=== PATIENT | male | born 1970 | race Caucasian/White ===

== ENCOUNTER 2019-02-08 20:55 | Emergency (ER) | payer BC, SELFPAY ==
[2019-02-08 21:06] VITALS: BP 164/108; PULSE 82; RESP 18; TEMP 36.2; O2SAT 99; BMI 27.5
[2019-02-08 21:30] VITALS: BP 155/96; PULSE 74; RESP 18; O2SAT 97
--- NOTE | 2019-02-08 21:54 | ED_ITS ---
HPI - Dizziness General Chief Complaint: Dizziness Stated Complaint: LIGHT HEADED AND DIZZY Time Seen by Provider: 02/08/19 21:54 Source: patient Mode of arrival: Ambulatory Limitations: no limitations History of Present Illness HPI Narrative: This is a 48-year-old gentleman comes emergency feeling lightheaded and dizzy. Patient states when he moves his head side to makes him feel little bit more dizzy. He states some soreness sudden onset was sitting at a desk. He denies spinning or vertigo like symptoms. He did the describes it more as feeling lightheaded but with no presyncope or syncope. States better but still present. Denies any vision changes. Chronically has headaches the left orthodox and behind the eye that sometimes cause some numbness and tingling of his face. He takes Lexapro for this intermittently. He has had testing including CT and MRI of his head and neck and they did not find any changes. Patient states he has not any fevers or chills. He has had some pressure in his ears. He has had a little bit of sinus pressure. He felt little nauseated today, he denies any shortness of breath currently. No chest pain or pressure. No cough. No issues with bowel movements, changes with urination. Denies any numbness, tingling or weakness in his extremities. He has an appointment with his primary care on March 11 because he states he woke up feeling like he was gasping for air. He does have a history hypertension he quit taking his lisinopril for about 5 days and took his dose this evening about 830 because he was having the symptoms he described today. He also has been prescribed gabapentin but is not taking regularly and he ran out of his Flexeril about a week ago. He has had neck surgery and stem cell implantation in his neck. Denies tobacco, rare alcohol, no illicit. Related Data Home Medications Medication Instructions Recorded Confirmed hydrochlorothiazide 25 mg PO QDAY #0 04/05/17 lisinopril #0 04/05/17 Previous Rx's Medication Instructions Recorded ciprofloxacin HCl [Cipro] 500 mg PO BID #20 tab 04/05/17 clindamycin HCl 450 mg PO Q12H #60 cap 04/05/17 fluticasone propionate [Flonase 1 spray NASAL DAILY #9.9 ml 02/08/19 Allergy Relief] Allergies Allergy/AdvReac Type Severity Reaction Status Date / Time Penicillins [PENICILLINS] Allergy Intermediate hives and Unverified 06/25/17 12:09 rash Review of Systems Review of Systems ROS Unobtainable: All systems reviewed & are unremarkable except as noted in HPI and below Patient History Medical History (Updated 02/08/19 @ 22:35 by Dai Potts DO) Frequent headaches (Acute) Hypertension (Acute) Surgical History (Updated 02/08/19 @ 22:59 by Tammi Raymundo RN) H/O neck surgery (Acute) Social History (Updated 02/08/19 @ 22:32 by Dai Potts DO) Smoking Status: Never smoker alcohol intake: current substance use type: does not use alcohol intake frequency: holidays/special occasions only Substance Use Type: does not use Exam Narrative Exam Narrative: GEN: well nourished, well appearing male, alert and oriented x 3, patient appears to be in no acute distress. HEENT: Atraumatic, pupils are equal round reactive to light, extraocular movements are intact, nares are clear, TMs is opaque on the left, not erythematous, slight bulge, on the right there is some opacity but not completely opaque. No erythema or bulge. Throat is clear without any exudates, erythema, tonsillar enlargement or uvular deviation HEART: Regular rate and rhythm without murmur, clicks, rubs. No carotid bruits, pulses are equal in upper and lower extremities LUNGS:Lungs clear to auscultation, no wheezes, rales, crackles, chest moves symmetrically ABD:bowel sounds normal, soft, non-tender, no guarding, rebound, rigidity, no masses noted, no hepatosplenomegaly MSCL: Non-tender, no muscle atrophy, muscles strength 5/5 upper and lower extremities, full range of motion, normal gait NEURO:CN 2-12 intact, sensation normal, finger nose finger test normal, heel gutierrez test normal Initial Vital Signs Initial Vital Signs: Vital Signs Temperature 97.1 F L 02/08/19 21:06 Pulse Rate 82 02/08/19 21:06 Respiratory Rate 18 02/08/19 21:06 Blood Pressure 164/108 H 02/08/19 21:06 Pulse Oximetry 99 02/08/19 21:06 Course Orders Ordered: ED Orders 11/25/19 21:10 EKG-12 Lead Stat 02/08/19 21:25 Complete Blood Count AUTO DIFF Stat Comprehensive Metabolic Panel Stat Troponin I Stat Vital Signs Vital signs: Vital Signs - 8 hr 02/08/19 21:06 02/08/19 21:30 02/08/19 22:05 Temperature 97.1 F L Pulse Rate 82 74 78 Respiratory Rate 18 18 15 Blood Pressure 164/108 H Blood Pressure [Left Arm] 155/96 H 148/100 H Pulse Oximetry 99 97 99 02/08/19 22:39 Temperature Pulse Rate 84 Respiratory Rate 17 Blood Pressure Blood Pressure [Left Arm] 170/95 H Pulse Oximetry 99 MDM - Dizziness Lab Data Attestation: I reviewed the patient's lab results. Result diagrams: 02/08/19 21:25 02/08/19 21:25 Labs: Lab Results 02/08/19 02/08/19 Range/Units 21:25 21:25 WBC 6.9 (4.5-11.0) X10^3/uL RBC 5.34 (4.5-5.9) X10^6/uL Hgb 15.7 (13.5-17.5) g/dL Hct 44.7 (41-53) % MCV 83.6 (80-100) fL MCH 29.3 (26-34) PG MCHC 35.0 (30-36) % RDW 13.1 (11.6-14.8) % Plt Count 306 (150-400) X10^3/uL Neut % (Auto) 67.5 (50-75) % Lymph % (Auto) 23.0 L (25-40) % [place] % (Auto) 7.4 (3-14) % Eos % (Auto) 1.6 L (2-4) % Baso % (Auto) 0.5 (0-2) % Neut # (Auto) 4600 (3143-3705) /uL Lymph # (Auto) 1600 (7777-3787) /uL [place] # (Auto) 500 (0-900) /uL Eos # (Auto) 100 (0-450) /uL Baso # (Auto) 0 (0-100) /uL Sodium 139 (137-145) mmol/L Potassium 4.4 (3.4-5.1) mmol/L Chloride 102 (98-107) mmol/L Carbon Dioxide 29 (22-32) mmol/L BUN 17 (9-20) mg/dL Creatinine 0.90 (0.66-1.25) mg/dL Estimated GFR > 60.0 (>60) mL/min BUN/Creatinine Ratio 18.9 (6-22) Glucose 121 H (70-100) mg/dL Calcium 10.9 H (8.4-10.2) mg/dL Total Bilirubin 0.5 (0.2-1.3) mg/dL AST 31 (17-59) IU/L ALT 44 (<50) IU/L Alkaline Phosphatase 72 (38-126) U/L Troponin I < 0.012 (0.01-0.034) ng/mL Total Protein 7.4 (6.3-8.2) g/dL Albumin 4.9 (3.5-5.0) g/dL Globulin 2.5 (1.7-4.1) g/dL Albumin/Globulin Ratio 2.0 (1.0-2.8) ECG Data Attestation: I personally reviewed and interpreted this ECG as follows: Prior ECG tracings: not available for review Interpretation: Sinus rhythm with sinus arrhythmia, rate of 79 P are 179 QRS [address] elevation or depression is appreciated. Heart is are in V1 V2. MDM Narrative Medical decision making narrative: In with complaint of dizziness he describes moving his head is making it worse but when delineating his other symptoms he is not describing vertigo type symptoms otherwise. He describes more of a lightheadedness. Patient's lab work an EKG did not show any acute findings. Patient's physical exam he has quite a bit opacification of the left TM, he has complained of some sinus pressure. He has also recently stepped Flexeril which he was taking regularly because he ran out. Patient takes this typically for headaches which he gets on his left orthodox. He has not had any new changes or n eurologic changes that are suspicious. He has had workup for his headaches including CT and MRI. My suspicion is patient may be having a little bit of eustachian tube dysfunction and pressure changes and so we discussed trying some Flonase. He was hypertensive in the department which he states he quit taking about 5 days ago, he did take his home dose this evening a few hours prior to arrival but I would suspect that has not reached its full potential. Patient does not have any signs or symptoms that are suggestive of a stroke or neurologic changes. Patient was asked to return if he had any changes such as this Discharge Plan Departure Patient Disposition: Home Clinical Impression: Dizziness, History of neck surgery Discharge Date/Time: 02/08/19 22:59 Instructions: DI for Dizziness-Nonvertigo Activity Restrictions/Additional Instructions: Follow up with your physician at your scheduled appointment. Call for sooner appointment if your continuing to have symptoms. I recommend continuing your lisinopril daily for hypertension. Today your blood pressure is elevated particularly your diastolic is elevated and this medication will help. You may use Flonase 1 spray to bilateral nose once daily, see if this improves your symptoms. Make sure you are drinking plenty of fluids. Return to the emergency department for new or changing headaches, passing out, altered mental status, persistent vomiting new weakness, numbness or difficulty using extremities, changes to speech or other new or concerning symptoms. Prescriptions: New fluticasone propionate [Flonase Allergy Relief] 50 mcg/actuation spray,suspension 1 spray NASAL DAILY Qty: 9.9 RF: 0 No Action hydrochlorothiazide 25 MG tablet 25 mg PO QDAY Qty: 0 RF: 0 lisinopril 2.5 mg tablet Qty: 0 RF: 0 clindamycin HCl 150 MG capsule 450 mg PO Q12H Qty: 60 RF: 0 ciprofloxacin HCl [Cipro] 500 MG tablet 500 mg PO BID Qty: 20 RF: 0
[2019-02-08 21:57] LABS: Add Manual Diff / Slide Review NO; Basophils Absolute Auto 0 /uL (0-100); Basophils Percent Auto 0.5 % (0-2); Eosinophils Absolute Auto 100 /uL (0-450); Eosinophils Percent Auto 1.6 % (2-4); Hematocrit 44.7 % (41-53); Hemoglobin 15.7 g/dL (13.5-17.5); Lymphocytes Absolute Auto 1600 /uL (1100-4500); Mean Corpuscular Hemoglobin 29.3 PG (26-34); Mean Corpuscular Volume 83.6 fL (80-100); Monocytes Absolute Auto 500 /uL (0-900); Monocytes Percent Auto 7.4 % (3-14); Neutrophils Absolute Auto 4600 /uL (1500-7000); Neutrophils Percent Auto 67.5 % (50-75); Platelet Count 306 X10^3/uL (150-400); Red Blood Cell Count 5.34 X10^6/uL (4.5-5.9); Red Cell Distribution Width 13.1 % (11.6-14.8); White Blood Cell Count 6.9 X10^3/uL (4.5-11.0)
[2019-02-08 22:05] VITALS: BP 148/100; PULSE 78; RESP 15; O2SAT 99
[2019-02-08 22:06] LABS: Alanine Aminotransferase 44 IU/L (<50); Albumin 4.9 g/dL (3.5-5.0); Alkaline Phosphatase 72 U/L (38-126); Aspartate Aminotransferase 31 IU/L (17-59); BUN Creatinine Ratio 18.9 (6-22); Bilirubin Total 0.5 mg/dL (0.2-1.3); Blood Urea Nitrogen 17 mg/dL (9-20); Calcium 10.9 mg/dL (8.4-10.2); Carbon Dioxide 29 mmol/L (22-32); Chloride 102 mmol/L (98-107); Estimated Glomerular Filt Rate > 60.0 mL/min (>60); Globulin 2.5 g/dL (1.7-4.1); Glucose 121 mg/dL (70-100); HEMOLYSIS < 15 (0-50); Potassium 4.4 mmol/L (3.4-5.1); Sodium 139 mmol/L (137-145); Total Protein 7.4 g/dL (6.3-8.2)
[2019-02-08 22:24] LABS: Troponin I < 0.012 ng/mL (0.01-0.034)
[2019-02-08 22:39] VITALS: BP 170/95; PULSE 84; RESP 17; O2SAT 99
== END 2019-02-08 22:59 | disposition home or self-care (01) ==
PROVIDERS: Emergency Provider Emergency Medicine
DX: R42 Dizziness and giddiness (principal); I49.9 Cardiac arrhythmia, unspecified; Z98.890 Other specified postprocedural states; I10 Essential (primary) hypertension
CPT/HCPCS: 36415; 80053; 84484; 85025; 93005; 99283; 99284